=== PATIENT | female | born 1965 | race Hispanic/Latino ===

== ENCOUNTER 2025-04-22 11:36 | Emergency (ER) | payer BC ==
--- OUTSIDE RECORDS SUMMARY | 2025-04-22 11:40 | XMS REPORT | Continuity of Care Document ---
Author Name Unknown Address [address] [facility] [place] [address] Organization [facility] [place] Address [address] 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 Role Phone Rolando Vazquez Primary Care Physician [phone] Doctor Unassigned, [place] Attending Clinician U Ben Graves MD Attending Clinician RADIOLOGY Attending Clinician Unavailable Radiology Attending Clinician Unavailable BEN BORDEN Attending Clinician Unavailabl e Radiology Attending Clinician Unavailable JOE KEE Attending Clinician Unavailable Doctor Unassigned, [place] Attending Clinician U JAMIL Ramos JR Admitting Clinician Unavailab JESE Quiñones Admitting Clinician Unavailabl e Payers Payer Name Policy Type Policy Number Effective Date Expirati on Date Source [employer] [id number] 2019 00:00:00 L [facility] CLAIMS [id number] 2014 00:00:00 Problems Condition Name Condition Details Condition Category Status Onset Date Resolution Date Last Treatment Date Treating Clinician Comments Source Overactive urinary bladder Overactive Urinary Bladder Problem Active 03-11 00:00: 00 [facility] Muscle atrophy Muscle Atrophy Problem Active 03-11 00:00: 00 [facility] Dysfunctio nal voiding of urine Dysfunctio nal Voiding of Urine Problem Active 03-11 00:00: 00 [facility] Urinary tract infectious disease Urinary Tract Infectious Disease Problem Active 2025-0 7-14 00:00: 00 [facility] Endometria l hyperplasi a Endometria l Hyperplasi a Problem Active 4-28 00:00: 00 [facility] Atrophy of skeletal muscle of pelvis Atrophy of Skeletal Muscle of Pelvis Problem Active 3-28 00:00: 00 [facility] Right lower quadrant pain Right Lower Quadrant Pain Problem Active 3- 00:00: 00 [facility] Lateral cystocele Lateral Cystocele Problem Active 3-05 00:00: 00 [facility] Genuine stress incontinen ce Genuine Stress Incontinen ce Problem Active 3-05 00:00: 00 [facility] Atrophic vaginitis Atrophic Vaginitis Problem Active 3 00:00: 00 [facility] Urge incontinen ce of urine Urge Incontinen ce of Urine Problem Active 305 00:00: 00 [facility] High triglyceri jef High triglyceri jef Disease Active 11-20 00:00: 00 [facility] Elevated blood pressure reading without diagnosis of hypertensi on Elevated blood pressure reading without diagnosis of hypertensi on Disease Active 11-19 00:00: 00 [facility] Post-menop ausal Post-menop ausal Disease Active 11-19 00:00: 00 [facility] Screen for STD (sexually transmitte d disease) Screen for STD (sexually transmitte d disease) Disease Active 01-06 00:00: 00 [facility] Breast pain Breast pain Disease Active 01-06 00:00: 00 [facility] Encounter for contracept isabel management , unspecifie d contracept isabel encounter type Encounter for contracept isabel management , unspecifie d contracept isabel encounter type Disease Active 01-06 00:00: 00 [facility] History of bilateral tubal ligation History of bilateral tubal ligation Disease Active 01-06 00:00: 00 [facility] Obesity, unspecifie d Obesity, unspecifie d Disease Active 01-06 00:00: 00 [facility] Tobacco abuse Tobacco abuse Disease Active 01-06 00:00: 00 [facility] Allergies, Adverse Reactions, Alerts Allergy Name Allergy Type Status Severity Reaction(s) Onset Date Inactive Date Treating Clinician Comments Source NO KNOWN ALLERGIE S Drug Class Active [facility] Social History Social Habit Start Date Stop Date Quantity Comments Source History of tobacco use 1979-07-24 00:00:00 Cigarette Smoker [facility] Sexual orientation U [facility] Alcohol intake 2023-09-08 00:00:00 2023-09-08 00:00:00 Current non-drinker of alcohol (finding) [facility] Alcoholic beverage intake 2023-09-08 00:00:00 2023-09-08 00:00:00 Current non-drinker of alcohol (finding) [facility] Exposure to SARS-CoV-2 (event) 2022-03-22 00:00:00 2022-04-01 15:14:00 Not sure [facility] History of Social function 2019-01-29 00:00:00 2019-01-29 00:00:00 [facility] Cigarettes smoked current (pack per day) - Reported 2018-11-19 00:00:00 2018-11-19 00:00:00 [facility] Cigarette pack-years 2018-11-19 00:00:00 2018-11-19 00:00:00 [facility] Tobacco use and exposure 2018-11-19 00:00:00 2018-11-19 00:00:00 Smokeless tobacco non-user [facility] Sex assigned at 1965 00:00:00 1965 00:00:00 [facility] Smoking Status Start Date Stop Date Source Former Smoker [facility] Smokes tobacco daily 2018-11-19 00:00:00 [facility] Medications Ordered Medication Name Filled Medication Name Start Date Stop Date Current Medication? Ordering Clinician Indication Dosage Frequency Signature (SIG) Comments Components Source iopamidol (ISOVUE 370-500 mL) injection 125 mL 10-11 21:30: 00 10-11 20:32 :00 No [id number] 125mL 125 mL, Intravenou s, ONCE, 1 dose, On Mon10/11/24 at 1630, Routine [facility] No known medications 0 11-19 16:01: 05 No No known medication s [facility] No known medications No Un lori [facility] amlodipine amlodipine No amlodipine [facility] estradiol 0.01% (0.1 mg/gram) vaginal cream Insert 0.5 g 3 times a week by vaginal route for 30 days. estradiol 0.01% (0.1 mg/gram) vaginal cream Insert 0.5 g 3 times a week by vaginal route for 30 days. No .5g Q56H estradiol 0.01% (0.1 mg/gram) vaginal cream Insert 0.5 g 3 times a week by vaginal route for 30 days. [facility] Immunizations Ordered Immunization Name Filled Immunization Name Date Status Comments Source SARS-COV-2 COVID-19 PFIZER VACCINE 2023-09-08 11:23:58 Completed [facility] SARS-COV-2 COVID-19 PFIZER VACCINE 2020-11-10 00:00:00 Completed [facility] SARS-COV-2 COVID-19 PFIZER VACCINE 2020-11-10 00:00:00 Completed [facility] SARS-COV-2 COVID-19 PFIZER VACCINE 2020-11-10 00:00:00 Completed [facility] SARS-COV-2 COVID-19 PFIZER VACCINE 2020-10-20 00:00:00 Completed [facility] SARS-COV-2 COVID-19 PFIZER VACCINE 2020-10-20 00:00:00 Completed [facility] SARS-COV-2 COVID-19 PFIZER VACCINE 2020-10-20 00:00:00 Completed [facility] Vital Signs Vital Name Observation Time Observation Value Comments S ource Body Weight 2025-03-11 00:00:00 171 [lb_av] [facility] BMI (Body Mass Index) 2025-03-11 00:00:00 31.3 kg/m2 [facility] Height 2025-03-11 00:00:00 62 [in_i] [facility] BMI (Body Mass Index) 2025-02-28 00:00:00 31.3 kg/m2 [facility] BP Diastolic 2025-02-28 00:00:00 74 mm[Hg] [facility] Height 2025-02-28 00:00:00 62 [in_i] [facility] Body Weight 2025-02-28 00:00:00 171 [lb_av] [facility] BP Systolic 2025-02-28 00:00:00 132 mm[Hg] [facility] BMI (Body Mass Index) 2025-02-03 00:00:00 31.3 kg/m2 [facility] Height 2025-02-03 00:00:00 62 [in_i] [facility] Body Weight 2025-02-03 00:00:00 171 [lb_av] [facility] BP Systolic 2024-10-18 00:00:00 139 mm[Hg] [facility] BP Diastolic 2024-10-18 00:00:00 76 mm[Hg] [facility] BMI (Body Mass Index) 2024-10-18 00:00:00 30.5 kg/m2 [facility] Height 2024-10-18 00:00:00 62 [in_i] [facility] Body Weight 2024-10-18 00:00:00 167 [lb_av] [facility] Body Weight 2024-09-25 00:00:00 166.4 [lb_av] [facility] BP Diastolic 2024-09-25 00:00:00 84 mm[Hg] [facility] Height 2024-09-25 00:00:00 62 [in_i] [facility] BMI (Body Mass Index) 2024-09-25 00:00:00 30.4 kg/m2 [facility] BP Systolic 2024-09-25 00:00:00 143 mm[Hg] [facility] Procedures Procedure Date / Time Performed Performing Clinician Source US TRANSVAGINAL 2024-10-03 00:00:[address] [facility] [address], urogram 2024-09-25 00:00:00 [facility] BI SCREENING TOMOSYNTHESIS BILATERAL 2023-09-08 18:24:41 Requisition, Paper [facility] US PELVIS COMPLETE WITH TRANSVAGINAL 2023-03-17 15:19:00 Requisition, Paper [facility] PATIENT FINANCIAL POLICY 2022-04-08 14:10:16 Doctor Unassigned, [place] [facility] NO SHOW OR MISSED APPOINTMENT POLICY ACKNOWLEDGEMENT 2022-04-08 14:09:49 Doctor Unassigned, [place] [facility] NOTICE OF PRIVACY PRACTICES 2022-04-08 14:09:18 Doctor Unassigned, [place] [facility] CONSENT/REFUSAL FOR DIAGNOSIS AND TREATMENT 2022-04-08 14:08:50 Doctor Unassigned, [place] [facility] ASSIGNMENT OF BENEFITS 2022-04-08 14:08:14 Docto r Unassigned, [place] [facility] Encounters Start Date/Time End Date/Time Encounter Type Admission Type Attending [facility] Care Department Encounter ID Source 2025-03-11 00:00:00 2025-03-11 00:00:00 Ben Borden MD: [address], [address], [place] [id number] , Ph. [facility] - GC_GCBZW_Mellissa Witt* [id number] [facility] 2025-02-28 00:00:00 2025-02-28 00:00:00 Ben Borden MD: [address], [address], [place] [id number] , Ph. [facility] GC_GCBZW_Mellissa Witt* [id number] [facility] 2025-02-03 00:00:00 2025-02-03 00:00:00 REGINA GreenP: [address], [address], [place] [address] , Ph. [facility] GC_GCBZW_Mellissa Witt* [id number] [facility] 2024-09-17 00:00:00 2024-10-19 18:18:46 Patient Secure Msg Doctor Unassigned, [place] Doctor Unassigned, [place] [facility] [id number] [id number] [id number] [id number] [facility] 2024-10-18 00:00:00 2024-10-18 00:00:00 Ben Borden MD: [address], [place] [address] , Ph. [facility] - GC_GCBZW_[facility]* [id number] [facility] 2024-10-15 00:00:00 2024-10-15 00:00:00 Ben Borden MD: [address], [place] [address] , Ph. [facility] - GC_GCBZW_[facility]* [id number] [facility] 2024-10-11 13:54:42 2024-10-11 23:59:00 Hospital Encounter Ben Boredn [facility] [id number] [id number] [id number] [id number] [facility] 2024-10-11 13:54:32 2024-10-11 23:59:00 Outpatient R RADIOLOGY [facility] [id number] [facility] 2024-10-11 13:54:32 2024-10-11 23:59:00 Hospital Encounter Radiology Radiology [facility] .[id number] [id number] 4.2.7.2.686 [id number] [facility] 2024-10-10 00:00:00 2024-10-10 00:00:00 JOSELINE Hong: [address], [place] [address] , Ph. [facility] - GC_GCBZW_[facility]* [id number] [facility] 2024-10-03 00:00:00 2024-10-03 00:00:00 Ben Borden MD: [address], [place] [address] , Ph. [facility] - GC_GCBZW_La ke Eduar* [id number] [facility] 2024-09-25 00:00:00 2024-09-25 00:00:00 Ben Borden MD: [address], [place] [address] , Ph. [facility] - GC_GCBZW_[place]* [id number] [facility] 2023-09-08 11:23:58 2023-09-08 23:59:00 Outpatient R RADIOLOGY [facility] [id number] [facility] 2023-09-08 11:23:58 2023-09-08 23:59:00 Hospital Encounter Radiology [facility] [id number] [id number] [id number] [id number] [facility] 2023-03-17 09:44:21 2023-03-17 23:59:00 Outpatient R RADIOLOGY [facility] [id number] [facility] 2023-03-17 09:44:21 2023-03-17 23:59:00 Hospital Encounter Radiology [facility] [id number] [id number] [id number] [id number] [facility] 2023-02-06 15:51:34 2023-02-06 15:51:34 Outpatient [facility] [id number] Jose Antonio 2023-01-06 09:50:51 2023-01-06 09:50:51 Outpatient [facility] [id number] Jose Antonio 2022-04-08 09:12:53 2022-04-08 23:59:00 Outpatient R RADIOLOGY [facility] [id number] [facility] 2022-04-08 09:12:53 2022-04-08 23:59:00 Hospital Encounter Radiology [facility] [id number] 350.1.13.10 4.2.7.2.686 [id number] [facility] 2020-11-10 10:05:00 2020-11-10 10:05:00 Outpatient [facility] [id number] [facility] 2020-10-20 10:05:00 2020-10-20 10:05:00 Outpatient JOE WILLARD [facility] [id number] [facility] 2019-01-30 00:00:00 2019-01-30 00:00:00 Patient Secure Msg Doctor Unassigned, [place] [facility] [id number] 350.1.13.10 4.2.7.2.686 [id number] [facility] 2019-01-30 00:00:00 2019-01-30 00:00:00 Patient Secure Msg Doctor Unassigned, [place] [facility] [id number] [id number] [id number] [id number] Results Test Description Test Time Test Comments Results Result Co mments Source [facility] Medical[facility] test, [id number] 10:14:56* Test Item Value Reference Range Interpretation Comme nts HCG (test code = HCG) negative [facility] Medicalinfectious disease [id number] 00:00:00* Test Item Value Reference Range Interpretation Comme nts acinetobacter baumannii (brian t code = acinetobacter baumannii) 0 ppm 19.961-24.689 citrobacter freundii (test c ode = citrobacter freundii) 0 ppm 23.000-32.015 enterobacter aerogenes, cloa (test code = enterobacter aerogenes, cloacae) 0 ppm 23.000-32.290 enterococcus faecalis, faeci um (test code = enterococcus faecalis, faecium) 0 ppm 26.000-33.043 escherichia coli (test code = escherichia coli) 0 ppm 23.000-28.500 klebsiella pneumoniae, oxyto ca (test code = klebsiella pneumoniae, oxytoca) 0 ppm 23.000-31.865 morganella morganii (test co de = morganella morganii) 0 ppm 19.961-24.689 proteus mirabilis, vulgaris (test code = proteus mirabilis, vulgaris) 0 ppm 23.000-28.500 pseudomonas aeruginosa (test code = pseudomonas aeruginosa) 0 ppm 23.000-31.801 staphylococcus aureus (test code = staphylococcus aureus) 0 ppm 26.000-31.595 streptococcus agalactiae (gr oup B strep) (test code = streptococcus agalactiae (group B strep)) 0 ppm 26.000-32.435 vilma albicans, parapsilos is, tropicalis (test code = vilma albicans, parapsilosis, tropicalis) 0 ppm 23.000-30.347 vilma glabrata (nakaseomyc es glabratus) (test code = vilma glabrata (nakaseomyces glabratus)) 0 ppm 23.000-31.618 vilma krusei (pichia kudri avzevii) (test code = vilma krusei (pichia kudriavzevii)) 0 ppm 23.000-30.873 serratia marcescens (test co de = serratia marcescens) 0 ppm 23.000-31.581 streptococcus pyogenes (grou p A strep) (test code = streptococcus pyogenes (group A strep)) 0 ppm 19.961-24.689 staphylococcus saprophyticus (test code = staphylococcus saprophyticus) 0 ppm 19.961-24.689 staphylococcus epidermidis, haemolyticus, lugdunensis (test code = staphylococcus epidermidis, haemolyticus, lugdunensis) 0 ppm 19.961-24.689 [facility] Medicalmeasurement of post-voiding residual urine and/or bladder capacity (PROC)2025-02-03 11:09:00* Test Item Value Reference Range Interpretation Comme nts (PVR) (test code = (PVR)) 26 [facility] Medicalurinalysis, [id number] 10:20:35* Test Item Value Reference Range Interpretation Comme nts Leukocytes (test code = Leukocytes) Negative Nitrite (test code = Nitrite) negative Urobilinogen (test code = Urobilinogen) Normal Protein (test code = Protein) Negative pH (test code = pH) 6.0 Blood (test code = Blood) 1+ Specific Holly (test code = Specific Holly) 1.020 Ketone (test code = Ketone) Negative Bilirubin (test code = Bilirubin) Negative Glucose (test code = Glucose) Negative Appearance (test code = Appearance) Clear Color (test code = Color) Yellow [facility] Medicalurinalysis, [id number] 14:54:33* Test Item Value Reference Range Interpretation Comme nts Leukocytes (test code = Leukocytes) Negative Nitrite (test code = Nitrite) negative Urobilinogen (test code = Urobilinogen) Normal Protein (test code = Protein) Negative pH (test code = pH) 6.0 Blood (test code = Blood) Non-Hemolyzed: Moderate Specific Holly (test code = Specific Holly) 1.030 Ketone (test code = Ketone) Negative Bilirubin (test code = Bilirubin) Negative Glucose (test code = Glucose) Negative Appearance (test code = Appearance) Slightly Cloudy Color (test code = Color) Yellow [facility] Medicalurinalysis, [id number] 21:09:48* Test Item Value Reference Range Interpretation Comme nts Leukocytes (test code = Leukocytes) 1+ Nitrite (test code = Nitrite) negative Urobilinogen (test code = Urobilinogen) Normal Protein (test code = Protein) Negative pH (test code = pH) 5.0 Blood (test code = Blood) Negative Specific Holly (test code = Specific Holly) 1.020 Ketone (test code = Ketone) Negative Bilirubin (test code = Bilirubin) Negative Glucose (test code = Glucose) Negative Appearance (test code = Appearance) Clear Color (test code = Color) Yellow [facility] Medicalurinalysis, [id number] 14:09:25* Test Item Value Reference Range Interpretation Comme nts Leukocytes (test code = Leukocytes) Negative Nitrite (test code = Nitrite) negative Urobilinogen (test code = Urobilinogen) Normal Protein (test code = Protein) Negative pH (test code = pH) 5.5 Blood (test code = Blood) 2+ Specific Holly (test code = Specific Holly) 1.030 Ketone (test code = Ketone) Negative Bilirubin (test code = Bilirubin) Negative Glucose (test code = Glucose) Negative Appearance (test code = Appearance) Clear Color (test code = Color) Yellow [facility] SCREENING TOMOSYNTHESIS [id number] 19:15:17 Examination:BI SCREENING TOMOSYNTHESIS BILATERAL History:Patient is 58 year old and is seen for: ?Screening mammogram. Computer-aided detection (CAD) utilized. Comparisons: 04/08/2022 BI SCREENING TOMOSYNTHESIS BILATERAL, 01/12/2017 SCREENING DIGITAL BREAST DEISY, 02/08/2011 DIGITAL MAMMOGRAM, SCREENING, and 12/19/2008 DIGITAL MAMMOGRAM, SCREENING Findings:The breasts have scattered areas of fibroglandular density. There is no evidence of suspicious masses, calcifications, or other abnormal findings. Impression:No mammographic evidence of malignancy. Recommendation:Annual mammographic follow-up BI-RADS Category: Both [facility], [id number] 13:59:05SPECIMEN NUMBER: [id number] CULTURE, URINE SPECIMEN NUMBER: [id number] SPECIMEN COMMENT: URINE SOURCE: URINE REPORT STATUS: FINAL ISOLATE NUMBER 1: ORGANISM: 02/09/2023 >100,000 CFU/ML GRAM NEGATIVEBACILLI IDENTIFICATION: 02/10/2023 ESCHERICHIA COLI E. COLI AMOXICILLIN/CA SENSITIVE <=8/4AMPICILLIN RESISTANT >16CEFAZOLIN SENSITIVE 4CEFTRIAXONE SENSITIVE <=1CIPROFLOXACIN RESISTANT >2LEVOFLOXACIN RESISTANT >4NITROFURANTOIN SENSITIVE <=32PIP/TAZOBAC SENSITIVE <=16TETRACYCLINE SENSITIVE <=4TOBRAMYCIN SENSITIVE <=4TRIMETH/SULFA SENSITIVE <=2/38 NOTE: NUMBERS DISPLAYED REPRESENT MINIMUM INHIBITORY CONCENTRATION (KARLEE) WHICH IS EXPRESSED IN MCG/ML. UNLESS OTHERWISE INDICATED, ALL TESTING PERFORMED AT [facility] [address] [place] [id number] SUPERVISOR CELL OPERATION: URIAH QUEEN M.D. [place] NUMBER [id number] [place]. [id number]
[2025-04-22 12:03] LABS: Absolute Lymphocytes (CBC) 2.1 K/uL (0.7-4.9); Hematocrit 46.9 % (36.0-45.0); Hemoglobin 15.6 g/dL (12.0-15.0); MCH 28.9 pg (27.0-35.0); MCHC 33.2 g/dL (32.0-36.0); MCV 87.2 fL (80-100); MPV 7.5 fL (7.6-11.3); Nucleated RBC Absolute Count 0.0 (0-0); Nucleated Red Blood Cells % 0.0 % (0-0); RBC Red Blood Cell Count 5.38 M/uL (3.86-4.86); White Blood Count 6.30 thou/uL (4.3-10.9)
[2025-04-22] MEDS ORDERED: ACETAMINOPHEN 325 MG TABLET ONE (12:04)
[2025-04-22] MEDS ORDERED: NA CHLORIDE 0.9% 1,000 ML ONE (12:04)
[2025-04-22 12:24] LABS: ALT/SGPT 37 U/L (13-56); AST/SGOT 15 U/L (15-37); Albumin 3.9 g/dL (3.4-5.0); Albumin/Globulin Ratio 1.0 (1.1-1.8); Alkaline Phosphatase 87 U/L (45-117); Anion Gap 7.0 mEq/L (5.0-15.0); BUN Blood Urea Nitrogen 13 mg/dL (7-18); Globulin 3.8 g/dL (2.3-3.5); Glucose Level 106 mg/dL (74-106); Magnesium 2.4 mg/dL (1.6-2.4); NT PRO-BNP 58 pg/mL (<125); Potassium 4.0 mEq/L (3.5-5.1); Troponin High Sensitivity 25.5 pg/mL (<58.9)
[2025-04-22 12:34] LABS: PT Prothrombin Time 11.8 SECONDS (10-13.0); Protime INR 1.05
--- NOTE | 2025-04-22 12:34 | RAD REPORT ---
Procedure: Chest Single View HISTORY: Chest pain COMPARISON: none FINDINGS: The lungs appear clear of acute infiltrate. Lungs are hyperaerated. No significant pleural effusion noted. The heart is normal size. IMPRESSION: No acute abnormality is displayed.
[2025-04-22 12:36] LABS: Bilirubin Indirect, Calculated 0.2 mg/dL (0.2-0.8)
--- NOTE | 2025-04-22 12:48 | RAD REPORT ---
EXAM: CT Head Brain Wo Cont HISTORY: dizziness, headache COMPARISON: None TECHNIQUE: Multiple contiguous axial images were obtained for a CT of the brain without contrast. Sag ittal and coronal reformats were performed. One or more of the following dose reduction techniques were used: Automated exposure control, adjus tment of the mA and kV according to patient size, and iterative reconstruction. Unless otherwise specified, incidental findings do not require dedicated imaging follow-up. FINDINGS: No evidence of hydrocephalus, intracranial hemorrhage, or extra-axial fluid collection. The brain is normal in morphology. Partially empty sella incidentally noted. The calvarium is intact. The visualized paranasal sinuses and mastoid air cells are essentially clear . IMPRESSION: No evidence of acute intracranial abnormality.
--- NOTE | 2025-04-22 14:23 | EDPHYS ---
Physician Documentation [facility] Name: Xi Yeh Age: 59 yrs Sex: Female : 1965 Arrival Date: 04/22/2025 Time: 11:36 Bed 6 Private MD: ED Physician Romulo De Leon HPI: 04/22 14:52 This 59 yrs old Female presents to ER via Ambulatory with complaints of Chest sb4 Pain, Numbness Of Arm - RT. 14:52 Patient states that yesterday she was exposed to natural gas at work and it made her sb4 very lightheaded. She states that she went home early and when she was climbing up her stairs she had a syncopal episode. She states that she was evaluated by occupational health yesterday, had an EKG that was unremarkable. Because her symptoms were still persisting today they sent her here for further workup. She denies any cardiac history, only medical history is hypertension which she reports compliance with her medications. She reports a headache and some dizziness. Denies any nausea, vomiting, shortness of breath. Historical: - Allergies: 11:49 No Known Allergies; iw - PMHx: 11:49 Hypertensive disorder; iw - PSHx: 11:49 None; iw - Immunization history:: Adult Immunizations not up to date. - Infectious Disease History:: Denies. - Social history:: Smoking status: Patient/guardian denies using tobacco, the patient reports quitting approximately 2 years ago. ROS: 14:52 Constitutional: Negative for fever, chills, and weight loss, sb4 14:52 Cardiovascular: Positive for chest pain, 14:52 Neuro: Positive for dizziness, headache, 14:52 All other systems are negative, Exam: 14:52 Constitutional: This is a well developed, well nourished patient who is awake, alert, sb4 and in no acute distress. Head/Face: Normocephalic, atraumatic. Eyes: Extra-ocular motions intact. Periorbital areas with no swelling, redness, or edema. ENT: Mucous membranes moist. Cardiovascular: Regular rate and rhythm with a normal S1 and S2. Respiratory: No increased work of breathing, no retractions or nasal flaring. Abdomen/GI: Soft, non-tender, no distension. Skin: Warm, dry with normal turgor. Normal color with no rashes, no lesions, and no evidence of cellulitis. MS/ Extremity: Pulses equal, no cyanosis. Neurovascular intact. Full, normal range of motion. Neuro: Awake and alert, GCS 15, oriented to person, place, time, and situation. Motor strength 5/5 in all extremities. Sensory grossly intact. Vital Signs: 11:49 Weight 76.2 kg; Height 5 ft. 2 in. ; Pain 7/10; iw 12:00 BP 138 / 74; Pulse 59; Resp 17; Temp 98.5(O); Pulse Ox 99% on R/A; Pain 6/10; ab3 12:30 BP 136 / 74; Pulse 54; Resp 16; Pulse Ox 97% on R/A; ab3 13:00 BP 140 / 88; Pulse 54; Resp 18; Pulse Ox 99% on R/A; Pain 5/10; ab3 14:25 BP 145 / 80; Pulse 76; Resp 16; Temp 98.3(O); Pulse Ox 99% on R/A; Pain 2/10; ab3 11:49 Body Mass Index 30.73 (76.20 kg, 157.48 cm) iw 11:49 Pain Scale: Adult iw 12:00 Pain Scale: Adult ab3 13:00 Pain Scale: Adult ab3 14:25 Pain Scale: Adult ab3 Martínez Coma Score: 12:00 Eye Response: spontaneous(4). Motor Response: obeys commands(6). Verbal Response: ab3 oriented(5). Total: 15. MDM: 11:50 Medical Screening Exam initiated sb4 14:52 Differential diagnosis: ACS, cardiac arrhythmia, anxiety, electrolyte abnormality, sb4 migraine. Data reviewed: vital signs, nurses notes, lab test result(s), EKG, radiologic studies, and as a result, I will discharge patient. Consideration of Admission/Observation Escalation of care including admission/observation considered. Care significantly affected by the following chronic conditions: Hypertension, Obesity. Counseling: I had a detailed discussion with the patient and/or guardian regarding the historical points, exam findings, and any diagnostic results supporting the discharge/admit diagnosis, the presence of at least one elevated blood pressure reading (>120/80) during this emergency department visit, lab results, radiology results, the need for outpatient follow up, for definitive care, a lead blender, to return to the emergency department if symptoms worsen or persist or if there are any questions or concerns that arise at home. Special discussion: Based on the patient's history, exam, and Dx evaluation, there is no indication for emergent intervention or inpatient Tx. It is understood by the patient/guardian that if the Sx's persist or worsen they need to return immediately for re-evaluation. 04/22 11:50 Order name: Basic Metabolic Panel; Complete Time: 12:38 sb4 04/22 11:50 Order name: CBC with Diff; Complete Time: 12:06 sb4 04/22 11:50 Order name: LFT's; Complete Time: 12:38 sb4 04/22 11:50 Order name: Magnesium; Complete Time: 12:38 sb4 04/22 11:50 Order name: NT PRO-BNP; Complete Time: 12:38 sb4 04/22 11:50 Order name: PT-INR; Complete Time: 12:36 sb4 04/22 11:50 Order name: Troponin HS; Complete Time: 12:38 sb4 04/22 13:20 Order name: Troponin High Sensitivity; Complete Time: 14:16 sb4 04/22 11:50 Order name: XRAY Chest (1 view); Complete Time: 12:36 sb4 04/22 12:03 Order name: Head Brain Wo Cont CT; Complete Time: 12:50 sb4 04/22 11:50 Order name: Cardiac monitoring; Complete Time: 11:53 sb4 04/22 11:50 Order name: EKG - Nurse/Tech; Complete Time: 11:53 sb4 04/22 11:50 Order name: IV Saline Lock; Complete Time: 11:53 sb4 04/22 11:50 Order name: Labs collected and sent; Complete Time: 11:55 sb4 04/22 11:50 Order name: O2 Per Protocol; Complete Time: 11:53 sb4 04/22 11:50 Order name: O2 Sat Monitoring; Complete Time: 11:53 sb4 EC:07 Rate is 56 beats/min. Rhythm is regular, Normal Sinus Rhythm. OR interval is normal at sb4 146 msec. QRS interval is normal at 76 msec. QT interval is normal at 470 msec. No Q waves. T waves are Normal. No ST changes noted. Clinical impression: Normal ECG. Interpreted by me. Reviewed by me. Administered Medications: 12:02 Not Given (Physician Discretion): aspirinchewable tablet 324 mg PO once; 81 mg tablets sb4 x 4 12:06 Drug: NS 0.9% IV 1000 ml IV at 1000 ml once; to be given as a bolus over 60 minutes ab3 Route: IV; Rate: 1000 ml; Infused Over: 1 hrs; Site: right antecubital; Delivery: Primary tubing; 13:26 Follow up: IV Status: Infusion continued; IV converted to saline lock; IV Intake: [id number] 12:06 Drug: Acetaminophen PO 650 mg PO once Route: PO; ab3 13:25 Follow up: Response: No adverse reaction; Pain is decreased ab3 Disposition: 16:57 I was immediately available on-site in the Emergency Department for consultation in the az3 care of the patient. Disposition Summary: 04/22/25 14:23 Discharge Ordered Notes: Location: Home sb4 Problem: new sb4 Symptoms: have improved sb4 Condition: Stable sb4 Diagnosis - Chest pain, unspecified sb4 Followup: sb4 - With: Emergency Department - When: As needed - Reason: Trouble breathing, Worsening of condition Followup: sb4 - With: Homer Rojo MD - When: As needed - Reason: Further diagnostic work-up, Recheck today's complaints, Re-evaluation by your physician Discharge Instructions: - Discharge Summary Sheet sb4 - Near-Syncope, [id number] sb4 - Nonspecific Chest Pain, Adult, [id number] sb4 Forms: - Work release form sb4 - Patient Portal Instructions sb4 - Leadership Thank You Letter sb4 Signatures: Dispatcher [employer] EDGeneva Kaplan, Romulo Burroughs RN, DO DO ms3 Kell Dubois PA-C PA-C sb4 Catia Hernandez RN RN ab3 Corrections: (The following items were deleted from the chart) 11:51 11:51 Chest Single View+RAD.RAD.[email or web address] ordered. ARISTIDES IRVING
--- NOTE | 2025-04-22 14:23 | ER ---
Nurse's Notes [facility] Name: Xi Yeh Age: 59 yrs Sex: Female : 1965 Arrival Date: 04/22/2025 Time: 11:36 Bed 6 Private MD: Diagnosis: Chest pain, unspecified Presentation: 04/22 11:47 Chief complaint: Patient states: was exposed to natural gas at her work yesterday , had iw chest discomfort, syncope and right arm numbness, she was checked out by her occupational health clinic, was sent here today for further evaluation. Coronavirus screen: At this time, the client does not indicate any symptoms associated with coronavirus-19. Ebola Screen: No symptoms or risks identified at this time. Initial Sepsis Screen: Does the patient meet any 2 criteria? No. Patient's initial sepsis screen is negative. Does the patient have a suspected source of infection? No. Patient's initial sepsis screen is negative. Risk Assessment: Do you want to hurt yourself or someone else? Patient reports no desire to harm self or others. Onset of symptoms was April 21, 2025. 11:47 Method Of Arrival: Ambulatory iw 11:47 Acuity: GREG 3 iw Triage Assessment: 11:57 General: Appears in no apparent distress. uncomfortable. General: Appears Behavior is ab3 cooperative, appropriate for age, anxious. Pain: Complains of pain in top of head Quality of pain is described as aching, Pain began suddenly, gradually, began since exposure to gas yesterday. Neuro: No deficits noted. Level of Consciousness is awake, alert, Oriented to person, place, time, situation, Appropriate for age Grill Cook are Moves all extremities. Full function Gait is steady, Speech is normal, Facial symmetry appears normal, Pupils are PERRLA, Pupil Size: 3mm Intact Reports blurred vision headache since 04/21.25 after exposure to gas at work. Cardiovascular: Reports chest pain, CP resolved at present. since 04/21, and still felt this morning, but reports better now. Respiratory: No deficits noted. GI: No deficits noted. Historical: - Allergies: 11:49 No Known Allergies; iw - PMHx: 11:49 Hypertensive disorder; iw - PSHx: 11:49 None; iw - Immunization history:: Adult Immunizations not up to date. - Infectious Disease History:: Denies. - Social history:: Smoking status: Patient/guardian denies using tobacco, the patient reports quitting approximately 2 years ago. Screenin:57 [facility] ED Fall Risk Assessment (Adult) History of falling in the last 3 months, ab3 including since admission No falls in past 3 months (0 pts) Confusion or Disorientation No (0 pts) Intoxicated or Sedated No (0 pts) Impaired Gait No (0 pts) Mobility Assist Device Used No (0 pt) Altered Elimination No (0 pt) Score/Fall Risk Level 0 - 2 = Low Risk Oriented to surroundings, Maintained a safe environment, Educated pt \T\ family on fall prevention, incl call for assistance when getting out of bed, Assessed \T\ reinforced patient's understanding of fall precautions, Provided non-skid footwear, Hourly rounding (assess needs \T\ fall precautionary measures) done. Abuse screen: Denies threats or abuse. Denies injuries from another. Nutritional screening: No deficits noted. Tuberculosis screening: No symptoms or risk factors identified. Assessment: 11:49 Also complains of inability to work, her job asked her to come to ER for continued ab3 symptoms s/p natural gas exposure yesterday. General: Appears in no apparent distress. uncomfortable, Behavior is cooperative, anxious. Pain: Complains of pain in head Pain does not radiate. Pain currently is 6 out of 10 on a pain scale. 12:23 General: Please see triage assessment entered by primary nurse. . ab3 Vital Signs: 11:49 Weight 76.2 kg; Height 5 ft. 2 in. ; Pain 7/10; iw 12:00 BP 138 / 74; Pulse 59; Resp 17; Temp 98.5(O); Pulse Ox 99% on R/A; Pain 6/10; ab3 12:30 BP 136 / 74; Pulse 54; Resp 16; Pulse Ox 97% on R/A; ab3 13:00 BP 140 / 88; Pulse 54; Resp 18; Pulse Ox 99% on R/A; Pain 5/10; ab3 14:25 BP 145 / 80; Pulse 76; Resp 16; Temp 98.3(O); Pulse Ox 99% on R/A; Pain 2/10; ab3 11:49 Body Mass Index 30.73 (76.20 kg, 157.48 cm) iw 11:49 Pain Scale: Adult iw 12:00 Pain Scale: Adult ab3 13:00 Pain Scale: Adult ab3 14:25 Pain Scale: Adult ab3 Vitals: 12:00 Cardiac Rhythm Assessment Regular Sinus rhythm. ab3 Martínez Coma Score: 12:00 Eye Response: spontaneous(4). Motor Response: obeys commands(6). Verbal Response: ab3 oriented(5). Total: 15. ED Course: 11:39 Patient arrived in ED. cj3 11:44 Catia Hernandez, RN is Primary Nurse. ab3 11:49 Triage completed. iw 11:49 Arm band placed on. iw 11:49 Patient has correct armband on for positive identification. Placed in gown. Bed in low ab3 position. Call light in reach. Side rails up X 1. Adult w/ patient. Provided Education on: ER orientation and call light-use. Client placed on continuous cardiac and pulse oximetry monitoring. NIBP monitoring applied. mechanical apprentice on. Pulse ox on. NIBP on. 11:50 Kell Dubois PA-C is PHCP. sb4 11:50 Romulo De Leon DO is Attending Physician. sb4 11:51 No provider procedures requiring assistance completed. Inserted saline lock: 20 gauge ab3 in right antecubital area, using aseptic technique. IV is patent, is intact, Flushed right antecubital. Patient maintains SpO2 saturation greater than 95% on room air. 12:21 XRAY Chest (1 view) In Process Unspecified. EDMS 12:24 No apparent distress. Patient moved to CT. ab3 12:26 Head Brain Wo Cont CT In Process Unspecified. EDMS 13:41 Troponin High Sensitivity Sent. ab3 14:23 Homer Rojo MD is Referral Physician. sb4 14:26 IV discontinued, intact, bleeding controlled, Pressure dressing applied. ab3 Administered Medications: 12:02 Not Given (Physician Discretion): aspirinchewable tablet 324 mg PO once; 81 mg tablets sb4 x 4 12:06 Drug: NS 0.9% IV 1000 ml IV at 1000 ml once; to be given as a bolus over 60 minutes ab3 Route: IV; Rate: 1000 ml; Infused Over: 1 hrs; Site: right antecubital; Delivery: Primary tubing; 13:26 Follow up: IV Status: Infusion continued; IV converted to saline lock; IV Intake: [id number] 12:06 Drug: Acetaminophen PO 650 mg PO once Route: PO; ab3 13:25 Follow up: Response: No adverse reaction; Pain is decreased ab3 Medication: 12:02 VIS not applicable for this client. ab3 Intake: 13:26 IV: 1000ml; Total: 1000ml. ab3 Outcome: 14:23 Discharge ordered by MD. [email or web address] 14:36 Discharged to home ambulatory, with family, ab3 14:36 Condition: improved 14:36 Discharge instructions given to patient, Instructed on discharge instructions, follow up and referral plans. 14:36 Patient left the ED. ab3 Signatures: Dispatcher [employer] EDGeneva Kaplan, RN Kell Landaverde, PA-C PA-C [email or web address] Catia Hernandez, NADER RN 3 Marycarmen Corona [email or web address]
[2025-04-22 14:49] VITALS: O2SAT 99
[2025-04-22 14:51] VITALS: BP 145/80; TEMP 98.3
== END 2025-04-22 14:36 | disposition home or self-care (01) ==
LOC: ER 11:36
DX: R07.9 Chest pain, unspecified (principal); I10 Essential (primary) hypertension
CPT/HCPCS: 93005; 85025; 80048; 36415; 83735; 85610; 80076; 84484 ×2; 83880; 70450; 71045; 96360; 99285; J7030